=== PATIENT | female | born 1975 | race Caucasian/White ===

== ENCOUNTER 2019-09-24 17:47 | Emergency (ER) | payer SELFPAY ==
[2019-09-24] MEDS ORDERED: Ketorolac 60 MG/2 ML SDV IM ONE (18:02)
[2019-09-24] MEDS ORDERED: methylPREDNISolone Sodium Succinate 125 MG/2 ML SDV IM ONE (18:02)
--- NOTE | 2019-09-24 18:09 | EDM.PDOC ---
ED HPI GENERAL MEDICAL PROBLEM - General Chief Complaint: Chest Pain Stated Complaint: CHEST PAINS Time Seen by Provider: 09/24/19 17:52 Source of Information: Reports: Patient History Limitations: Reports: No Limitations - History of Present Illness INITIAL COMMENTS - FREE TEXT/NARRATIVE: HISTORY AND PHYSICAL: History of present illness: Patient is a 44-year-old female who presents to the emergency room with complaints of right chest wall pain with arm movement. She states she was using her arms to drive when she went to make a turn she felt a sharp pain to her right chest wall. Pain initially was "so bad it made me dizzy". Pain only occurs when she is moving her right arm. No pain with deep breathes. She states that she feels like the pain is "internal". Denies any injury, trauma or falls. Patient denies any fever, chills, headache, change in vision, syncope or near syncope. Denies any back pain, shortness of breath or cough. Denies any abdominal pain, nausea, vomiting, diarrhea, constipation or dysuria. Has not noted any blood in urine or stool. Patient has been eating and drinking appropriately. Review of systems: As per history of present illness and below otherwise all systems reviewed and negative. Past medical history: As per history of present illness and as reviewed below otherwise noncontributory. Surgical history: As per history of present illness and as reviewed below otherwise noncontributory. Social history: See social history for further information Family history: As per history of present illness and as reviewed below otherwise noncontributory. Physical exam: General: Well developed and well nourished 44 year old female. Alert and orientated. Nontoxic, anxious appearing but in no acute distress. HEENT: Atraumatic, normocephalic, pupils equal and reactive bilaterally, negative for conjunctival pallor or scleral icterus, mucous membranes moist, neck supple, nontender, trachea midline. No drooling or trismus noted. No meningeal signs. No hot potato voice noted. Lungs: Clear to auscultation, breath sounds equal bilaterally, right lateral chest wall tender with palpation. Heart: S1S2, regular rate and rhythm without overt murmur Abdomen: Soft, nondistended, nontender. Negative for masses or hepatosplenomegaly. Negative for costovertebral tenderness. Pelvis: Stable nontender. Skin: Intact, warm, dry. No lesions or rashes noted. Extremities: Atraumatic, moves all extremities per self without difficulty or deficits, no shoulder pain or arm pain. Neurovascular unremarkable. Neuro: Awake, alert, oriented. Cranial nerves II through XII unremarkable. Cerebellum unremarkable. Motor and sensory unremarkable throughout. Exam nonfocal. Notes: No skin lesions which would make me suspect a shingles type pain. Diagnostics are unremarkable. EKG shows normal sinus rhythm, no acute findings. VSS. We discussed that this could be pulled muscle. Supportive care measures were reviewed and discussed. Voices understanding and is agreeable to plan of care. Denies any further questions or concerns at this time. Diagnostics: CBC, CMP, CXR Therapeutics: Solu-Medrol IM, Toradol IM Prescription: Diclofenac (#20) Impression: Chest wall pain Plan: 1. Rest and alternate ice/gentle heat to painful area. 2. Tylenol as needed. Diclofenac as prescribed, as needed for pain. Do not take any additional NSAIDs (such as Ibuprofen or Aleve while taking this medication) . Take with food. 3. Follow up with your primary care provider. Return to the ED as needed and as discussed. Definitive disposition and diagnosis as appropriate pending reevaluation and review of above. chest/right arm Pain Score (Numeric/FACES): 6 - Related Data Allergies Allergy/AdvReac Type Severity Reaction Status Date / Time codeine Allergy Difficulty Verified 09/24/19 17:55 Breathing Home Meds: Home Meds Methylphenidate [Ritalin] 30 mg PO DAILY 09/20/18 [History] Cetirizine [ZyrTEC] 10 mg PO DAILY 09/24/19 [History] Past Medical History - Past Health History Medical/Surgical History: Denies Medical/Surgical History Respiratory History: Reports: Asthma [employer] History: Reports: Other [employer] History: miscarriages d&C Psychiatric History: Reports: ADHD Endocrine/Metabolic History: Reports: Diabetes, Gestational - Infectious Disease History Infectious Disease History: Reports: Chicken Pox - Past Surgical History Female Surgical History: Reports: D&C Endocrine Surgical History: Reports: Other (See Below) Social & Family History - Family History Family Medical History: Noncontributory Cardiac: Reports: Other (See Below) Other Cardiac Family History: son has bicuspid aortic valve stenosis OBGYN: Reports: Endocrine/Metabolic: Reports: Diabetes, Gestational, Diabetes, type II - Tobacco Use Smoking Status *Q: Current Some Day Smoker Years of Tobacco use: 0 Packs/Tins Daily: 0 - Caffeine Use Caffeine Use: Reports: None - Recreational Drug Use Recreational Drug Use: No ED ROS GENERAL - Review of Systems Review Of Systems: Comprehensive ROS is negative, except as noted in HPI. ED EXAM, GENERAL - Physical Exam Exam: See Below (See dictation) Course - Vital Signs Last Recorded V/S: Last Vital Signs Temp 96.7 F 09/24/19 19:27 Pulse 74 09/24/19 19:27 Resp 18 09/24/19 19:27 BP 124/72 09/24/19 19:27 Pulse Ox 100 09/24/19 19:27 - Orders/Labs/Meds Orders: Active Orders 24 hr Category Date Time Status EKG Documentation Completion [RC] STAT Care 09/24/19 18:13 Active EKG Documentation Completion [RC] STAT Care 09/24/19 18:18 Active Labs: Laboratory Tests 09/24/19 09/24/19 Range/Units 18:54 18:54 WBC 8.83 (4.0-11.0) K/uL RBC 4.74 (4.30-5.90) M/uL Hgb 12.2 (12.0-16.0) g/dL Hct 38.9 (36.0-46.0) % MCV 82.1 (80.0-98.0) fL MCH 25.7 L (27.0-32.0) pg MCHC 31.4 (31.0-37.0) g/dL RDW Std Deviation 47.0 (28.0-62.0) fl RDW Coeff of Kavon 16 H (11.0-15.0) % Plt Count 368 (150-400) K/uL MPV 8.80 (7.40-12.00) fL Neut % (Auto) 63.4 (48.0-80.0) % Lymph % (Auto) 23.7 (16.0-40.0) % [place] % (Auto) 7.8 (0.0-15.0) % Eos % (Auto) 4.8 (0.0-7.0) % Baso % (Auto) 0.3 (0.0-1.5) % Neut # (Auto) 5.6 (1.4-5.7) K/uL Lymph # (Auto) 2.1 (0.6-2.4) K/uL [place] # (Auto) 0.7 (0.0-0.8) K/uL Eos # (Auto) 0.4 (0.0-0.7) K/uL Baso # (Auto) 0.0 (0.0-0.1) K/uL Nucleated RBC % 0.0 /100WBC Nucleated RBCs # 0 K/uL Sodium 140 (136-145) mmol/L Potassium 3.9 (3.5-5.1) mmol/L Chloride 104 (98-107) mmol/L Carbon Dioxide 25.0 (21.0-32.0) mmol/L BUN 9 (7.0-18.0) mg/dL Creatinine 0.8 (0.6-1.0) mg/dL Est Cr Clr Drug Dosing 84.01 mL/min Estimated GFR (MDRD) > 60.0 ml/min Glucose 135 H (74-106) mg/dL Calcium 8.6 (8.5-10.1) mg/dL Total Bilirubin 0.3 (0.2-1.0) mg/dL AST 18 (15-37) IU/L ALT 32 (14-63) IU/L Alkaline Phosphatase 89 (46-116) U/L Total Protein 7.9 (6.4-8.2) g/dL Albumin 3.5 (3.4-5.0) g/dL Globulin 4.4 H (2.6-4.0) g/dL Albumin/Globulin Ratio 0.8 L (0.9-1.6) Meds: Medications Discontinued Medications Generic Name Dose Route Start Last Admin Trade Name Freq PRN Reason Stop Dose Admin Ketorolac Tromethamine 60 mg 09/24/19 18:02 09/24/19 18:40 Toradol IM 09/24/19 18:03 60 mg ONETIME ONE Administration Methylprednisolone Sodium Succinate 125 mg 09/24/19 18:02 09/24/19 18:39 Solu-Medrol IM 09/24/19 18:03 125 mg ONETIME ONE Administration Departure - Departure Time of Disposition: 19:31 Disposition: Home, Self-Care 01 Clinical Impression: Acute chest wall pain Instructions: Chest Wall Pain Forms: ED Department Discharge Additional Instructions: The following information is given to patients seen in the emergency department who are being discharged to home. This information is to outline your options for follow-up care. We provide all patients seen in our emergency department with a follow-up referral. The need for follow-up, as well as the timing and circumstances, are variable depending upon the specifics of your emergency department visit. If you don't have a primary care physician on staff, we will provide you with a referral. We always advise you to contact your personal physician following an emergency department visit to inform them of the circumstance of the visit and for follow-up with them and/or the need for any referrals to a consulting specialist. The emergency department will also refer you to a specialist when appropriate. This referral assures that you have the opportunity for follow-up care with a specialist. All of these measure are taken in an effort to provide you with optimal care, which includes your follow-up. Under all circumstances we always encourage you to contact your private physician who remains a resource for coordinating your care. When calling for follow-up care, please make the office aware that this follow-up is from your recent emergency room visit. If for any reason you are refused follow-up, please contact the [facility] at and asked to speak to the emergency department charge nurse. [facility] [address] [place] [address] [id number] [address] [id number] 1. Rest and alternate ice/gentle heat to painful area. 2. Tylenol as needed. Diclofenac as prescribed, as needed for pain. Do not take any additional NSAIDs (such as Ibuprofen or Aleve while taking this medication) . Take with food. 3. Follow up with your primary care provider. Return to the ED as needed and as discussed. Sepsis Event Note - Evaluation Sepsis Screening Result: No Definite Risk - Focused Exam Vital Signs: Vital Signs Temp Pulse Resp BP Pulse Ox 09/24/19 19:27 96.7 F 74 18 124/72 100 09/24/19 17:53 97.6 F 95 18 144/81 H 98 Date Exam was Performed: 09/24/19 Time Exam was Performed: 19:30 - My Orders Last 24 Hours: My Active Orders 09/24/19 18:13 EKG Documentation Completion [RC] STAT 09/24/19 18:18 EKG Documentation Completion [RC] STAT - Assessment/Plan Last 24 Hours: My Active Orders 09/24/19 18:13 EKG Documentation Completion [RC] STAT 09/24/19 18:18 EKG Documentation Completion [RC] STAT
--- NOTE | 2019-09-24 18:39 | CR ---
INDICATION: RIGHT CHEST WALL PAIN, SOB TECHNIQUE: Chest 2 views. COMPARISON: None. FINDINGS: Cardiovascular and mediastinum: Heart size and vasculature are normal in caliber and appearance. Mediastinum is within normal limits. Lungs and pleural spaces: Lungs are clear. No sign of infiltrate or mass. No sign of pleural effusion. No pneumothorax. Bones and soft tissues: No significant findings. IMPRESSION: Unremarkable chest. Dictated by: Arslan Mcdaniel MD @ 09/24/2019 18:38:40 (Electronically Signed)
[2019-09-24 19:30] LABS: BLOOD UREA NITROGEN,BUN 9 mg/dL (7.0-18.0); CHLORIDE,CL 104 mmol/L (98-107); GLUCOSE RANDOM 135 mg/dL (74-106); POTASSIUM,K 3.9 mmol/L (3.5-5.1); SODIUM,NA 140 mmol/L (136-145)
[2019-09-24 23:01] VITALS: BP 130/74; PULSE 79
== END 2019-09-24 19:47 | disposition home or self-care (01) ==
LOC: MW.ED 17:47
DX: R07.89 Other chest pain (principal); J45.909 Unspecified asthma, uncomplicated; F17.210 Nicotine dependence, cigarettes, uncomplicated; Z79.899 Other long term (current) drug therapy; Z88.5 Allergy status to narcotic agent
CPT/HCPCS: 36415; 71046; 80053; 85025; 93005; 96372; 99285; J1885; J2930; 99283